=== PATIENT | female | born 1950 | race Caucasian/White ===

== ENCOUNTER 2016-08-20 07:00 | Inpatient (IN) | payer OTHER, MEDICARE ==
[~2016-08-20] VITALS: Ht 160 cm; Wt 56.7 kg
[~2016-08-20 07:00] MED LIST: ASPIRIN EC325 M2 PO; CALCIUM + D 6001 TAB PO; CLOPIDOGREL75 MG PO; ECOTRIN81 MG PO; ESTRACE0.1 MG/GM VAG; FENTANYL1 EAC2 TOP; FOLIC ACID0.8 MG PO; MELOXICAM15 MG PO; METHOTREXATE2.5 M2 PO; MTX SUPPORT TA1 EACH PO; MULTIVITAMIN1 TAB PO; NORCO 325 MG-51 TAB PO; ORENCIA125 MG/ML; PANTOPRAZOLE SO20 MG PO; PROVENTIL0.09 MG/A1 INH; RECLAST5 MG/100 M; SIMVASTATIN40 MG PO
[2016-10-01] MEDS ORDERED: DITROPAN XL15 M1 PO (15:13)
[2016-10-01] MEDS ORDERED: HYDROCODON-ACE1 EAC6 PO (15:18)
--- NOTE | 2016-10-08 12:23 | Operative Report ---
Operative/Inv Procedure Report Surgery Date: 10/08/16 Name of Procedure: Right total hip arthroplasty Pre-Operative Diagnosis: Right hip primary osteoarthritis Post-Operative Diagnosis: Same Estimated Blood Loss: 50ml to 100ml Surgeon/Non Licensed Nuclear Plant Operator: CRISTINA MEANS,Garret SOUSA PA Anesthesia: block Implants: Sherri secure fit femoral component-size 8 with 127 neck angle Size 2 Trident acetabulum 36+0 femoral head Biolox Drains: None Specimens: Femoral head, acetabular reamings Microbiology: Urine Complications: None Condition: Stable Operative Indication: Patient is a 65-year-old woman who has had gradually worsening right hip pain with radiation down to her knee. She was found to have severe end-stage degenerative changes of the right hip area treatment included medications, injections but patient only had short-term improvement. Due to ongoing symptoms that have interfere with normal activities of daily living, she wished to proceed with total hip arthroplasty. Risks, benefits and expectations of surgical procedure were discussed including but not limited to persistent hip pain, need for subsequent surgery, leg length discrepancy, dislocation, anesthesia risks, injury to blood vessel or nerve, DVT, infection Operative/Procedure Note Note: . Patient was brought to the operating room and transferred to the operating table. Under appropriate anesthesia patient was placed in left lateral decubitus position with right side up. All bony prominences were well-padded. Axillary roll was placed. The right lower extremity was prepped and draped in standard fashion. Preoperative IV antibiotics were given prophylactically. A standard lateral incision was made for anticipated posterior lateral/superior approach of the hip. Down to the underlying fascia. Fascia was incised in line with the skin incision. Hip was internally rotated and the piriformis was identified and incised and reflected posteriorly. The interval between the gluteus minimus tendon and the superior capsule was identified and a retractor was placed in this interval. A central portion of the posterior capsule was incised and reflected posteriorly for later repair. Superior and inferior portions of the capsule were excised. Hip was dislocated. Measurements were taken between the center the femoral head to the intertrochanteric line. Femoral neck cut was then made based on my preoperative templating and intraoperative measurements. Femoral head was found to be severely eburnated. The acetabulum was visualized and again similar findings were noted including severe osteoarthritis. Degenerative labral tissues were excised. I then reamed up to a size 51 for anticipated insertion of a size 52 acetabulum. After copious irrigation a definitive size 52 Trident acetabular shell was impacted in place with the appropriate anteversion and abduction based on patient's anatomy and the Sherri tower. I had excellent scratch fit. I placed 2 screws in the safe zone in standard fashion. I then placed the definitive liner to accept a 36 m femoral head area the locking mechanism was confirmed. I then placed a lap sponge to protect the polyethylene surface while preparing the femur. The hip was internally rotated 90 and flexed to about 60. A femoral elevator was placed. A box osteotome was used to lateralize my insertion site. Hand reamers up to a size 8 were used. This is followed by broaching up to a size 8. The last broach was left in place. Based on patient's anatomy and intraoperative findings site decided to use a 127 neck angle. The trial was done with a 36 mm +0 head. I was satisfied the moravian of the length of the lower extremity as well as the stability in all planes. I then removed all trial components from the femur. Copious irrigation followed. I then impacted the definitive size 8 secure fit Monroe stem with the 127 neck angle. Again scratch fit was excellent. I placed the definitive 36 mm +0 Biolox femoral head after drying the trunnion of the prosthesis. Again the hip was reduced and the stability was confirmed. No evidence of posterior stability with simultaneous internal rotation adduction and flexion to greater than 90. No evidence of anterior instability with simultaneous extension and external rotation. Copious irrigation followed and copious irrigation followed every level of closure. The capsule was repaired piriformis/external rotators were repaired area the fascia was closed with interrupted #1 Vicryl suture. The subcutaneous tissues closed in 2 layers with 2-0 Vicryl and skin was closed with emilia. Appropriate dressings were applied patient was awakened and taken the recovery room in good condition. No intraoperative complications. Blood loss was approximately 100 mL Discharge Disposition: PACU
--- NOTE | 2016-10-08 13:14 | RADIOLOGY REPORT ---
EXAMINATION: XR HIP, RIGHT CLINICAL INFORMATION: Status post replacement COMPARISON: None TECHNIQUE: Single view of the right hip. FINDINGS: No acute finding single view right hip. 2 part prosthesis. Good visual result. No fracture IMPRESSION: Good visual result. Single view 2 part right hip prosthesis
[2016-10-08 14:00] VITALS: BP 104/62
[2016-10-08 15:50] VITALS: BP 110/60
--- NOTE | 2016-10-08 17:07 | PN- Orthopedic ---
Subjective Subjective: Post Op Note Patient without pain or c/o. States that she has no numbness/tingling in RLE. Has not had dinner, no n/v. Ambulated in hallway with PT Denies CP/SOB Objective Vital Signs and I&Os Vital Signs Date Time Temp Pulse Resp B/P Pulse O2 O2 Flow FiO2 Ox Delivery Rate 10/08 1550 96.9 68 20 110/60 94 10/08 1400 93.8 62 16 104/62 95 Room Air Intake & Output 10/08 1600 10/08 0800 10/08 0000 10/07 1600 10/07 0810/07 0000 Intake Total Output Total Balance Patient 125 lb Weight Physical Exam: Gen: NAD, comfortable, A&Ox3 Chest: NRD, breathing comfortably on RA. RRR. Abd: Soft, nt, nd Ext: Right hip dressing c/d/i. Right thigh soft. No calve TTP/Swelling. N/V intact BLE. Current Medications: Current Medications Sig/Mina Start time Last Medication Dose Route Stop Time Status Admin Al Hydroxide/Mg 30 ML Q6P PRN 10/08 1400 AC Hydroxide PO Atorvastatin Calcium 10 MG 1700 10/08 1700 AC PO Dextrose/Lactated 1,000 ML Q13H 10/08 1400 AC 10/08 Ringer's IV 1405 Docusate Sodium 100 MG DAILY NEEDED PRN 10/08 1400 AC PO Morphine Sulfate 2 MG Q3P PRN 10/08 1400 AC IV Morphine Sulfate 4 MG Q3P PRN 10/08 1400 AC IV Ondansetron HCl 4 MG Q6P PRN 10/08 1400 AC IV Oxybutynin Chloride 5 MG TID 10/09 1000 AC PO Oxycodone HCl 15 MG Q12 10/08 2200 AC PO Oxycodone/ 1 TAB Q4P PRN 10/08 1400 AC Acetaminophen PO Oxycodone/ 2 TAB Q4P PRN 10/08 1400 AC Acetaminophen PO Pantoprazole Sodium 20 MG DAILY 10/09 1000 AC IV Polyethylene Glycol 17 GM DAILY NEEDED PRN 10/08 1400 AC PO Senna/Docusate Sodium 2 TAB AT BEDTIME NEED.. 10/08 1400 AC PO Vancomycin HCl 1,000 MG ONCE ONE 10/08 2200 AC Dextrose/Water 250 ML IV 10/08 2259 Vancomycin HCl 1,000 MG ONCE 10/08 0000 DC Sodium Chloride 250 ML IV 10/08 2359 Warfarin Sodium 5 MG COUMADIN 1700 ONE 10/08 1700 DC PO 10/08 1701 Assessment/Plan Assessment/Plan 65yo F POD#1 s/p right JOSE MARTIN. AVSS, stable. - pain control - PRN zofran - OOB with PT, WBAT - I/O's - continue ppx abx - asa 325mg PO BID - ALPS - keep dressing intact - dc planning Core Measures/Miscellaneous Venous Thromboembolism VTE Risk Factors: Age > 40, Surgery VTE Contraindications: No Contraindications VTE Prophylaxis Ordered Inpt: Mech & Pharm VTE Diagnosis: No Beta Bib Is Beta Bib a Home Med? No Antibiotics Is Patient on Antibiotics? Yes If Yes: prophylaxis
[2016-10-09 00:26] VITALS: BP 110/60
[2016-10-09 02:19] VITALS: BP 100/60
[2016-10-09 03:58] VITALS: BP 100/60
[2016-10-09 07:56] VITALS: BP 120/60
[2016-10-09 08:05] LABS: ABSOLUTE BASOPHIL COUNT 0.1 /CUMM (0.0-0.2); ABSOLUTE EOSINOPHIL COUNT 0.5 /CUMM (0.0-0.7); ABSOLUTE GRANULOCYTE CT 4.1 /CUMM (1.4-6.5); ABSOLUTE LYMPH COUNT 1.7 /CUMM (1.2-3.4); ABSOLUTE MONOCYTE COUNT 0.6 /CUMM (0.10-0.60); BASOPHIL % 0.7 % (0.0-2.0); GRANULOCYTE % 58.8 % (42.2-75.2); HEMATOCRIT 29.6 % (37-47); MEAN CORPUSCULAR HGB 29.7 PG (27.0-31.0); MEAN CORPUSCULAR HGB CONC 32.5 G/DL (33.0-37.0); MEAN CORPUSCULAR VOLUME 91.3 FL (81.0-99.0); MEAN PLATELET VOLUME 10.8 FL (7.4-10.4); PLATELET COUNT 201 /CUMM (130-400); RBC DISTRIBUTION WIDTH 15.5 % (11.5-14.5); RED BLOOD CELL CT 3.25 /CUMM (4.20-5.40)
--- NOTE | 2016-10-09 08:37 | PN- Orthopedic ---
See Addendum Subjective Subjective: No acute overnight events reported. Feels pain is under control. Denies chest pain, shortness of breath and difficulty breathing. Denies nausea and vomitting. Has been OOB with PT. Has been voiding. Objective Vital Signs and I&Os Vital Signs Date Time Temp Pulse Resp B/P Pulse O2 O2 Flow FiO2 Ox Delivery Rate 10/09 0756 97.9 83 20 120/60 95 Room Air 10/09 0358 98.8 86 20 100/60 91 Room Air 10/09 0219 98.4 94 20 100/60 94 Room Air 10/09 0026 98.2 86 20 110/60 94 Room Air 10/08 1550 96.9 68 20 110/60 94 10/08 1400 93.8 62 16 104/62 95 Room Air Intake & Output 10/09 1600 10/09 0800 10/09 0000 10/08 1600 10/08 0800 10/08 0000 Intake Total 1100 Output Total 700 650 Balance -700 450 Intake, IV 600 Intake, Oral 500 Output, Urine 700 650 Patient 125 lb Weight Physical Exam: General: Alert and oriented x3. no acute distress Cardiac: RRR, s1s2 Pulmonary: CTA bilaterally Abdomen: Non-tender, non-distended Extrmities: Moves all extremities, distal sensation intact. Motor 5/5 in plantar and dorsiflexion. Skin warm and well perfused. DP pulses palpable. Bilateral calves soft and non-tender Surgical site; Thigh compartment soft. Dressing dry and intact Assessment/Plan Assessment/Plan This is a 65 year old female, POD 1, s/p r thr -D/C iv fluids -Continue current pain regimen -F/U am labs -Coumadin daily, target INR 2-3 -OOB with PT -Will d/w Dr. Bhatti Core Measures/Miscellaneous Venous Thromboembolism VTE Risk Factors: Age > 40, Surgery VTE Contraindications: No Contraindications VTE Prophylaxis Ordered Inpt: Mech & Pharm VTE Diagnosis: No Beta Bib Is Beta Bib a Home Med? No Antibiotics Is Patient on Antibiotics? Yes If Yes: prophylaxis
[2016-10-09 09:00] LABS: PT 12.3 SEC (9.4-12.5)
[2016-10-09 15:48] VITALS: BP 104/58
[2016-10-09 22:34] VITALS: BP 100/50
--- NOTE | 2016-10-10 07:17 | PN- Orthopedic ---
See Addendum Subjective Subjective: Patient feeling well, states she was able to sleep overnight and feels that her pain is under control. Denies chest pain, shortness of breath and difficulty breathing. Denies nausea and vomitting. Has been voiding spontaneously. No bm yet. Has been oob without difficulty. Anticipates discharge to [facility] tomorrow. Objective Vital Signs and I&Os Vital Signs Date Time Temp Pulse Resp B/P Pulse O2 O2 Flow FiO2 Ox Delivery Rate 10/09 2234 98.6 90 20 100/50 94 Room Air 10/09 1548 99.2 84 20 104/58 94 10/09 1013 Room Air 10/09 0756 97.9 83 20 120/60 95 Room Air Intake & Output 10/10 0800 10/10 0000 10/09 1600 10/09 0800 10/09 0000 10/08 1600 Intake Total 240 814 705 7446 Output Total 450 400 400 700 650 Balance -210 -160 325 -700 450 Intake, IV 225 600 Intake, Oral 240 240 500 500 Output, Urine 450 400 400 700 650 Patient 125 lb Weight Physical Exam: General: Alert and oriented x3, no acute distress Cardiac: RRR, S1S2 Pulm: CTA bilaterally Abdomen: Non-tender, non-distended Extremites: Moves all extremities, distal sensations intact. Neurovascular intact. Calves soft and non-tender bialterally Surgical site: Right hip. Dressing taken down, skin edges well approximated with emilia, no drainage noted. Some erythema noted distal to incision, thigh compartment soft. Clean dry dressing reapplied. Assessment/Plan Assessment/Plan This is a 65 year old female, POD 2, s/p R THR, doing well -Dressing changed today, daily dry dressing changes -Bowel regimen to be given today, Colace and Miralax this am, Senna prn this evening -Continue diet as tolerated -Continue PT treatment, posterior hip precautions in place -Follow up am labs, CBC, BEP, INR -Coumadin for DVT prophylaxis, dose daily per INR -OOB with PT -Plan for dc tomorrow to str -Will d/w Dr. Bhatti Core Measures/Miscellaneous Venous Thromboembolism VTE Risk Factors: Age > 40, Surgery VTE Contraindications: No Contraindications VTE Prophylaxis Ordered Inpt: Mech & Pharm VTE Diagnosis: No Beta Bib Is Beta Bib a Home Med? No Antibiotics Is Patient on Antibiotics? Yes If Yes: prophylaxis
[2016-10-10 07:57] LABS: ABSOLUTE BASOPHIL COUNT 0.1 /CUMM (0.0-0.2); ABSOLUTE EOSINOPHIL COUNT 0.7 /CUMM (0.0-0.7); ABSOLUTE GRANULOCYTE CT 5.8 /CUMM (1.4-6.5); ABSOLUTE LYMPH COUNT 1.8 /CUMM (1.2-3.4); ABSOLUTE MONOCYTE COUNT 0.9 /CUMM (0.10-0.60); BASOPHIL % 0.6 % (0.0-2.0); EOSINOPHIL % 7.8 % (0-5); GRANULOCYTE % 62.6 % (42.2-75.2); HEMATOCRIT 28.6 % (37-47); MEAN CORPUSCULAR HGB 29.8 PG (27.0-31.0); MEAN CORPUSCULAR HGB CONC 32.6 G/DL (33.0-37.0); MEAN CORPUSCULAR VOLUME 91.4 FL (81.0-99.0); MEAN PLATELET VOLUME 11.4 FL (7.4-10.4); PLATELET COUNT 186 /CUMM (130-400); RBC DISTRIBUTION WIDTH 15.3 % (11.5-14.5); RED BLOOD CELL CT 3.13 /CUMM (4.20-5.40); WHITE BLOOD CELL COUNT 9.3 /CUMM (4.8-10.8)
[2016-10-10 08:24] LABS: PT 19.4 SEC (9.4-12.5)
[2016-10-10 08:40] VITALS: BP 110/58
[2016-10-10] MEDS ORDERED: OXYCONTIN15 M1 PO (11:01)
[2016-10-10] MEDS ORDERED: PERCOCET 5-3251 EACH PO (11:01)
[2016-10-10] MEDS ORDERED: COUMADIN5 M2 PO (11:02)
--- NOTE | 2016-10-10 11:13 | Patient Discharge Instructions ---
Discharge Instructions General Discharge Information You were seen/treated for: Right hip pain You had these procedures: Right total hip replacement Watch for these problems: Increasing pain, redness, warmth, swelling. Drainage of any type from incision. Inability to bear weight on right leg. Fever greater than 101.5. Call Surgeon to remove: [place] Do not soak the wound: Yes No bath, but you may shower: Yes Other wound care: Daily dry dressing changes Diet Continue normal diet: Yes Recommended Diet: Regular Additional DIET Information: Advance as tolerated Activity Full Activity/No Limits: No Activity Self Limited: Yes Pounds, do NOT lift more than: 10 Activity Limited to: Weight bear as tolerated Additional ACTIVITY Info: No bending at the waist greater than 90. Do not cross right leg over left leg. Continue posterior hip precautions. Acute Coronary Syndrome Inclusion Criteria At DC or during hospital stay patient has or had the following: ACS DIAGNOSIS No Discharge Core Measures Meds if any: Prescribed or Continued at Discharge Meds if any: NOT Prescribed or Continued at Discharge Congestive Heart Failure Inclusion Criteria At DC or during hospital stay patient has or had the following: CHF DIAGNOSIS No Discharge Core Measures Meds if any: Prescribed or Continued at Discharge Meds if any: NOT Prescribed or Continued at Discharge Cerebrovascular accident Inclusion Criteria At DC or during hospital stay patient has or had the following: CVA/TIA Diagnosis No Discharge Core Measures Meds if any: Prescribed or Continued at Discharge Meds if any: NOT Prescribed or Continued at Discharge Venous thromboembolism Inclusion Criteria VTE Diagnosis No VTE Type NONE VTE Confirmed by (Test) NONE Discharge Core Measures - Per Current guidelines, there needs to be overlap - treatment for the first 5 days of Warfarin therapy. - If discharged on Warfarin prior to 5 days of - overlap therapy, the patient will need to be - assessed for post discharge needs including - *Post discharge parental anticoagulation - *Warfarin and/or parental anticoagulation education - *Follow up date to check INR post discharge At least 5 days overlap therapy as Inpatient No Meds if any: Prescribed or Continued at Discharge Note: Overlap Therapy is Warfarin and Anticoagulant Meds if any: NOT Prescribed or Continued at Discharge
--- NOTE | 2016-10-10 11:17 | Surgical Discharge Summary ---
Visit Information Visit Dates Admission Date: 10/08/16 Discharge Date: 10/11/2016 History of Present Illness Chief Complaint: Right hip pain Medical History Blood Transfusion Hx: No Neurological: NONE EENT: NONE Cardiovascular: NONE Respiratory: NONE Gastrointestinal: GERD Hepatic: NONE Renal: NONE Musculoskeletal: osteoporosis, rheumatoid arthritis Psychiatric: NONE Endocrine: NONE Blood Disorders: NONE Cancer(s): NONE SENIOR TELECOMMUNICATIONS CONSULTANT/Reproductive: NONE History of MRSA: No History of VRE: No History of CDIFF: No Isolation History: Standard Influenza Vaccine: 08/09/16 Tetanus Vaccine: 08/02/14 Surgical History Pertinent Surgical History: non-contributory Psychosocial History Where Do You Live? Home Who Do You Live With? Spouse What is Your Primary Language? Surinamese Review of Systems: See H&P Hospital Course Course Attending Physician: CRISTINA MEANS,MERRY Primary Care Physician: NUHA MEANS,[facility] Course: Patient was admitted to the hospital on 10/08/2016 for an elective right total hip replacement. She tolerated the procedure well. She was transferred to a general surgical floor. Her diet was advanced and tolerated. She voided spontaneously. She moved her bowels. Her vital signs were stable and within normal limits. Her pain was well controlled. She was evaluated and treated by physical therapy. She was deemed appropriate for discharge to short-term rehabilitation. Allergies: Coded Allergies: rituximab (Intermediate, BLISTERS 05/18/16) oxaprozin (From DAYPRO) (RASH 05/18/16) Disposition Summary Disposition Principal Diagnosis: Right hip unilateral primary osteoarthritis Additional Diagnosis: None Discharge Disposition: SNF Discharge Instructions General Discharge Information Code Status: Full Code Patient's Diet: Regular, advance as tolerated Patient's Activity: Weight-bear as tolerated on right hip Follow-Up Instructions/Appts: Please contact Merry Bhatti MD's office to arrange and/or confirm your follow-up appointment. Your emilia will be required to be removed on postoperative day 14. Otherwise he would like to see you for a follow-up appointment in 4 weeks from the date of surgery. Medications at Discharge Discharge Medications: Stop taking the following medications: Aspirin (Ecotrin*) 325 MG TABLET.DR ORAL DAILY Hydrocodone/Acetaminophen (Hydrocodon-Acetaminoph 7.5-300) 7.5 MG-300 MG TABLET ORAL as needed for PAIN Continue taking these medications: Pantoprazole Sodium (Pantoprazole Sodium) 20 MG ECT 1 Tablet ORAL DAILY BEFORE BREAKFAST Qty = 30 Calcium/Vitamin D (Calcium + D) (Unknown Strength) TAB Unknown Dose ORAL DAILY Simvastatin (Simvastatin) 40 MG TABLET 1 Tablet ORAL Every night Qty = 90 Fentanyl (Fentanyl) 25 MCG/HOUR PATCH.TD72 1 Patch On the skin Every 3 days Comments: DOCUMENTED PER CMR DURING PRE-SX INTERVIEW Methotrexate (Methotrexate) 2.5 MG TABLET 7 Tablet ORAL EVERY SATURDAY Comments: PER PT Zoledronic Acid (Reclast) (Unknown Strength) PAOLA Unknown Dose Comments: PT REPORTS TAKING ONCE A YEAR Abatacept (Orencia) (Unknown Strength) SYRINGE Unknown Dose ONCE A MONTH Cyanocobalamin/Folic Acid (Mtx Support Tablet) 1 EACH TABLET 1 Tablet ORAL DAILY Comments: PER PT Oxybutynin Chloride (Ditropan XL) 15 MG TAB.ER.24 1 Tablet ORAL DAILY Comments: DOCUMENTED PER CMR DURING PRE-SX INTERVIEW Start taking the following new medications: Oxycodone HCl (Oxycontin) 15 MG TAB.ER.12H 1 Tablet ORAL TWICE DAILY Qty = 60 No Refills Oxycodone HCl/Acetaminophen (Percocet 5-325 MG Tablet) 5 MG-325 MG TABLET 1-2 Tablet ORAL Q4-6H as needed for PAIN Qty = 36 No Refills Warfarin Sodium (Coumadin) 5 MG TABLET 1 Tablet ORAL DAILY Qty = 30 No Refills
[2016-10-10 16:19] VITALS: BP 118/64
[2016-10-11 00:20] VITALS: BP 112/60
[2016-10-11 07:30] VITALS: BP 108/64
--- NOTE | 2016-10-11 07:38 | PN- Orthopedic ---
Subjective Subjective: No acute overnight events reported. Feels well this am, is anticipating discharge to short term rehab. Denies chest pain, shortness of breath and difficulty breathing. Moved bowels this am. No nasuea or vomitting. Objective Vital Signs and I&Os Vital Signs Date Time Temp Pulse Resp B/P Pulse O2 O2 Flow FiO2 Ox Delivery Rate 10/11 0730 97.9 80 18 108/64 93 Room Air 10/11 0020 98.6 87 18 112/60 99 Room Air 10/10 1619 98.6 88 20 118/64 94 Room Air 10/10 0840 98.3 88 20 110/58 94 Room Air Intake & Output 10/11 0800 10/11 0000 10/10 1600 10/10 0800 10/10 0000 10/09 1600 Intake Total 650 650 240 240 725 Output Total 600 800 450 400 400 Balance -600 650 -150 -210 -160 325 Intake, IV 225 Intake, Oral 650 650 240 240 500 Output, Urine 600 800 450 400 400 Physical Exam: General: Alert and oriented x3, no distress Cardiac: RRR, s1s2 Pulm: C T A bilaterally Abdomen: Non-tender, non-distended Extremites: Moves all extremities, distal sensation intact. DP pulses palpable. Skin warm and well perfused. Bilateral calves soft and non-tender Surgical site: Right hip, dressing dry and intact, no drainage. Firm hematoma noted distal to incision Assessment/Plan Assessment/Plan This is a 65 year old female, pod 3, s/p r thr -Continue coumadin for dvt ppx, titrate to inr 2-3 -F/U am labs -Continue current pain regimen -Continue diet as tolerated -Continue bowel regimen, pt moved bowels this am -Can try heat distal to incision -Plan for discharge to [facility] today Core Measures/Miscellaneous Venous Thromboembolism VTE Risk Factors: Age > 40, Surgery VTE Contraindications: No Contraindications VTE Prophylaxis Ordered Inpt: Mech & Pharm VTE Diagnosis: No Beta Bib Is Beta Bib a Home Med? No Antibiotics Is Patient on Antibiotics? Yes If Yes: prophylaxis
[2016-10-11 08:06] LABS: ABSOLUTE BASOPHIL COUNT 0.1 /CUMM (0.0-0.2); ABSOLUTE EOSINOPHIL COUNT 0.8 /CUMM (0.0-0.7); ABSOLUTE GRANULOCYTE CT 5.3 /CUMM (1.4-6.5); ABSOLUTE LYMPH COUNT 1.9 /CUMM (1.2-3.4); ABSOLUTE MONOCYTE COUNT 0.8 /CUMM (0.10-0.60); BASOPHIL % 0.8 % (0.0-2.0); EOSINOPHIL % 8.9 % (0-5); GRANULOCYTE % 59.9 % (42.2-75.2); HEMATOCRIT 30.1 % (37-47); MEAN CORPUSCULAR HGB 29.8 PG (27.0-31.0); MEAN CORPUSCULAR HGB CONC 32.4 G/DL (33.0-37.0); MEAN CORPUSCULAR VOLUME 92.1 FL (81.0-99.0); MEAN PLATELET VOLUME 10.9 FL (7.4-10.4); PLATELET COUNT 219 /CUMM (130-400); RBC DISTRIBUTION WIDTH 15.5 % (11.5-14.5); RED BLOOD CELL CT 3.27 /CUMM (4.20-5.40); WHITE BLOOD CELL COUNT 8.9 /CUMM (4.8-10.8)
[2016-10-11 08:14] LABS: PT 30.5 SEC (9.4-12.5)
[2016-10-11 10:36] VITALS: BP 108/64
--- NOTE | 2016-10-11 11:07 | NUR ---
NURSING NOTE: PATIENT DISCHARGED TO [facility]IA [facility]RETCHER WITH LISSETH. PATIENT A/OX3, ROOM AIR, VSS. PAIN MEDICATION GIVEN PRIOR TO DISCHARGE. REPORT CALLED TO RN AT FACILITY. IV DISCONTINUED. DRESSING TO R HIP REINFORCED CDI. ABDUCTOR PILLOW SENT WITH ALL OVER BELONGINGS. PAPERWORK GIVEN TO [facility] FOR TRANSPORT.
== END 2016-10-11 11:10 | DRG 470 ==
LOC: ENRESERVDT → ENRESERVTM → SDA 10-08 02:52 → ENPENDDIS 10-08 02:52 → 2NB 10-08 02:52
PROVIDERS: Nurse Practitioner; Physician Assistant; Physician Assistant Surgical; ADMIT Orthopaedic Surgery
PROC: 0SR904A Replacement of Right Hip Joint with Ceramic on Polyethylene Synthetic Substitute, Uncemented, Open Approach (ICD-10-PCS; principal; 2016-10-08)
DX: M16.11 Unilateral primary osteoarthritis, right hip (principal); M06.9 Rheumatoid arthritis, unspecified; K21.9 Gastro-esophageal reflux disease without esophagitis; E78.00 Pure hypercholesterolemia, unspecified
CPT/HCPCS: 2NSBP; 73501; 82436; 87086; 88304; 97110-GO; 97116-GO; 97161-GP; 97530-GO; J0131; J0171; J1100; J1885; J2405; J2795; J3370; J7040